=== PATIENT | female | born 1965 | race African-American/Black ===

== ENCOUNTER → 2016-10-31 | Outpatient (CLI) | payer OTHER ==
[2015-06-23 13:10] VITALS: BP 116/89
[~2016-10-31] MED LIST: DABI150C PO; HEPARIN PF 500 UNIT/5 ML DISP.SYRIN. IV ONE; IOHEXOL 240 MG/ML 50ML VIAL. PO ONE; IOHEXOL 300 MG/ML 75 ML VIAL IV ONE; MULT1TAB52 PO; ONDA4TAB12 PO; Oxycodone Hcl/Acetaminophen PO; WARF5TAB7 PO
--- NOTE | 2016-10-31 12:32 | RAD ---
Indication restage lung malignancy. Axial images through the chest abdomen and pelvis were obtained. Both oral and IV contrast were administered. Approximately 60 cc of Omnipaque 300 was administered intravenously. Note is made of a previous examination 08/16/2016. CT chest: Findings Known neoplasm, in the right upper lobe, persists and appears unchanged in size measuring approximately 2.9 x 1.9 cm. Some right hilar adenopathy is noted also appearing similar. A new finding in the chest is not seen. No new nodules are identified. Known underlying emphysematous changes are reproduced. CT abdomen and pelvis: Findings The liver and spleen appear unremarkable. The gallbladder appears grossly normal. No adrenal or renal pathology is seen. The pancreas appears unremarkable. An acute finding in the abdomen is not seen. No acute or significant finding is seen in the pelvis. Evidence of metastatic disease in the abdomen or pelvis is not seen. IMPRESSION: Stable soft tissue mass in the right upper lobe.. No new finding seen in the chest. No evidence of distant metastatic disease. Unremarkable CT imaging of the abdomen and pelvis PQRS Compliance Statement: One or more of the following individualized dose reduction techniques were utilized for this examination: 1. Automated exposure control 2. Adjustment of the mA and/or kV according to patient size 3. Use of iterative reconstruction technique
== END | disposition home or self-care (01) ==
LOC: CT 10:09
PROVIDERS: ATTEND Internal Medicine Hematology & Oncology
DX: C34.11 Malignant neoplasm of upper lobe, right bronchus or lung (principal)
CPT/HCPCS: 71260; 74177; Q9966; Q9967

== ENCOUNTER → 2016-12-12 | Outpatient (CLI) | payer OTHER ==
[2015-06-23 13:10] VITALS: BP 116/89
[~2016-12-12] MED LIST changes: -HEPARIN PF 500 UNIT/5 ML DISP.SYRIN. IV ONE; -IOHEXOL 240 MG/ML 50ML VIAL. PO ONE; -IOHEXOL 300 MG/ML 75 ML VIAL IV ONE
--- NOTE | 2016-12-12 11:17 | RAD ---
EXAM: DIGITAL SCREEN BILAT W/CAD. HISTORY: Screening. History of lung cancer. COMPARISON: None available, this is considered a new baseline. FINDINGS: Digital mammography was performed. Computer-aided detection (CAD) was utilized. The breast parenchyma demonstrates scattered fibroglandular densities (tissue density B). No dominant suspicious mass, suspicious microcalcifications, or architectural distortion is identified. Portions of a chest port are seen on the right MLO view. IMPRESSION: No mammographic evidence of malignancy. BI-RADS CATEGORY: 1 NEGATIVE RECOMMENDED FOLLOW-UP: 12M 12 MONTH FOLLOW-UP PQRS compliance statement: Patient information was entered into a reminder system with a target due date for the next mammogram. Mammography is a sensitive method for finding small breast cancers, but it does not detect them all and is not a substitute for careful clinical examination. A negative mammogram does not negate a clinically suspicious finding and should not result in delay in biopsying a clinically suspicious abnormality. "Our facility is accredited by the [employer] Mammography Program."
== END | disposition home or self-care (01) ==
LOC: MAMMO 10:28
PROVIDERS: ATTEND Family Medicine
DX: Z12.31 Encounter for screening mammogram for malignant neoplasm of breast (principal); Z85.118 Personal history of other malignant neoplasm of bronchus and lung
CPT/HCPCS: G0202; 77067

== ENCOUNTER → 2017-01-26 | Outpatient (CLI) | payer OTHER ==
[2015-06-23 13:10] VITALS: BP 116/89
[~2017-01-26] MED LIST changes: +HEPARIN PF 500 UNIT/5 ML DISP.SYRIN. IV ONE; +IOHEXOL 240 MG/ML 50ML VIAL. PO ONE; +IOHEXOL 300 MG/ML 75 ML VIAL IV ONE
--- NOTE | 2017-01-26 13:16 | RAD ---
CT neck, chest, abdomen without and with contrast 01/26/2017 at 1112 hours Indication: Restage lung cancer. New lumps in the right neck and ear. Comparison: CT of chest, abdomen and pelvis 10/31/2016 Technique: Multiple axial CT images of the neck, chest and abdomen were acquired before and after the administration of intravenous contrast. 75 mL of Omnipaque 300 was administered intravenously. 30 mL of Omnipaque 240 administered orally. Findings: Neck: There is a superficial subcutaneous nodule in the right preauricular space measuring 11 x 8 mm. There are nonenlarged right submandibular nodes measuring 10 x 6 mm patency series 2, image 26). There is a left pleural tube a lymph node measuring 12 x 9 mm (series 2, image 41). There is a left occipital node measuring 16 x 8 mm (series 2, image 43). There is a right level IIb lymph node measuring 8 x 6 mm. There is a right level 2B "measuring 8 x 7 mm (series 2, image 32). There is a left level 5 lymph node measuring 11 x 8 mm (series 2, image 25). Visualized portions of the brain appear normal. Visualized igiugig of [place] is normal. Orbits are normal in appearance. Paranasal sinuses and mastoid air cells are well aerated. Nasopharynx appears normal. There is slight asymmetric mucosal prominence in the left vallecula measuring approximately 8 mm. Oral cavity is normal. Parotid and submandibular glands appear normal. Thyroid gland appears normal Chest: Upper lobe predominant emphysematous changes are again noted. There is a mass in the medial right upper lobe measuring 37 x 18 mm, previously measuring 39 x 22 mm. There is a right hilar lymph node measuring 21 x 13 mm, previously measuring 22 x [address] series 4, image 24). No new mediastinal, axillary or hilar lymph nodes are identified. Heart size is normal in appearance. A right chest wall infusion port catheter is identified with the distal tip terminating in the superior right atrium. No pleural effusions. No pulmonary vascular congestion. No pericardial effusion. No pneumothorax. Abdomen: The liver enhances homogenously without evidence for a focal mass lesion. The spleen is normal. Bilateral adrenal glands are normal. The gallbladder is present without adjacent inflammatory changes. There is a new 5 mm hypodense lesion in the body of the pancreas (series 5, image 20). No pancreatic ductal dilatation. No peripancreatic inflammatory changes. No intrahepatic or extrahepatic biliary ductal dilatation. The abdominal aorta is normal in course and caliber. IVC is patent. There are no enlarged lymph nodes in the abdomen or pelvis. There is no free intraperitoneal air. No free fluid within the abdomen or pelvis. The kidneys enhance symmetrically. There is no hydronephrosis. No contour deforming renal mass. Small and large bowel are normal in caliber. A normal appendix is visualized. No pericolonic inflammatory changes are present. The urinary bladder is normal in appearance. No adnexal masses are identified. No suspicious osseous lesions are identified. Impression: 1. There are borderline and slightly enlarged bilateral cervical lymph nodes involving bilateral level 2B distributions and the left level 5 and occipital distributions. A right preauricular subcutaneous nodule is identified measuring 11 x 8 mm. Findings may represent areas of metastasis versus a primary head and neck malignancy. There is slight asymmetric soft tissue attenuation involving the left vallecula for which direct visualization is recommended. 2. There is slight interval decrease in size of the dominant right upper lobe pulmonary mass, currently measuring 37 x 18 mm, with similar appearance of the right hilar lymph node. No new pulmonary masses or thoracic lymphadenopathy. 3. There is a 5 mm hypodense lesion in the body of the pancreas which was not seen previously. Further evaluation with an MRCP is recommended. 4. Adrenal glands are normal. No evidence for lymphadenopathy within the abdomen and pelvis. PQRS Compliance Statement: One or more of the following individualized dose reduction techniques were utilized for this examination: 1. Automated exposure control 2. Adjustment of the mA and/or kV according to patient size 3. Use of iterative reconstruction technique
== END | disposition home or self-care (01) ==
LOC: CT 11:13
PROVIDERS: ATTEND Internal Medicine Hematology & Oncology
DX: C34.11 Malignant neoplasm of upper lobe, right bronchus or lung (principal); R22.1 Localized swelling, mass and lump, neck
CPT/HCPCS: 70492; 71270; 74170; Q9966; Q9967

== ENCOUNTER → 2017-03-21 | Outpatient (CLI) | payer OTHER ==
[2015-06-23 13:10] VITALS: BP 116/89
[~2017-03-21] MED LIST changes: +CONTRAST GIVEN MC PRN; +HEPARIN IV PRN; +HEPARIN PF 5 UNIT/5 ML DISP.SYRIN. IV PRN; +IOHEXOL 240 MG/ML 50ML VIAL. ONE; +IOHEXOL 300 MG/ML 75 ML VIAL ONE
--- NOTE | 2017-03-21 17:33 | RAD ---
CT of the chest, abdomen and pelvis with contrast, 03/21/2017: History: Follow-up lung cancer Multidetector CT imaging was performed following oral and IV administration of contrast. Comparison is made to a study from 01/26/2017. There is an irregular pulmonary mass in the medial aspect of the right upper lobe abutting the pleura and the margin of the mediastinum. On axial image 14 of series #2 and measures 35 x 20 mm. There has been no significant change since 01/26/2017. A nearby mildly prominent lymph node along the superior margin of the right hilum is unchanged. Emphysematous changes are present particularly in the upper lobes. There are scattered linear parenchymal scars. No new pulmonary infiltrate or nodularity is seen. There is no evidence of pleural fluid. A right Port-A-Cath extends to the level of the atriocaval junction. No mediastinal adenopathy is evident. No hepatic abnormality is seen. The gallbladder is unremarkable. The spleen is of normal size. No renal or adrenal abnormality is detected. A small low density lesion is again seen in the body of the pancreas near the midline. On coronal image 17 of series #5 it appears to communicate with the pancreatic duct. It measures approximately 7 mm. When allowing for technical differences it is probably unchanged since 01/26/2017. An intraductal papillary mucinous neoplasm is suspected. There is minimal aortic calcific plaquing. No abdominal or pelvic adenopathy is seen. The bowel loops are not dilated. No free fluid is evident in the abdomen or pelvis. IMPRESSION: 1. Stable right upper lobe pulmonary neoplasm. 2. Emphysema with parenchymal scarring. 3. Unchanged small low-density lesion in the body of the pancreas suggesting an intraductal papillary mucinous neoplasm. 4. No evidence of metastatic disease in the abdomen or pelvis. PQRS Compliance Statement: One or more of the following individualized dose reduction techniques were utilized for this examination: 1. Automated exposure control 2. Adjustment of the mA and/or kV according to patient size 3. Use of iterative reconstruction technique
== END | disposition home or self-care (01) ==
LOC: CT 12:52
PROVIDERS: ATTEND Internal Medicine Hematology & Oncology
DX: C34.11 Malignant neoplasm of upper lobe, right bronchus or lung (principal); J43.9 Emphysema, unspecified; R53.83 Other fatigue
CPT/HCPCS: 71260; 74177; Q9966; Q9967

== ENCOUNTER → 2017-05-29 | Outpatient (CLI) | payer OTHER ==
[2015-06-23 13:10] VITALS: BP 116/89
[~2017-05-29] MED LIST changes: -CONTRAST GIVEN MC PRN; -HEPARIN IV PRN; -HEPARIN PF 5 UNIT/5 ML DISP.SYRIN. IV PRN; -IOHEXOL 240 MG/ML 50ML VIAL. ONE; +IOHEXOL 300 MG/ML 100ML VIAL. IV ONE; -IOHEXOL 300 MG/ML 75 ML VIAL IV ONE; -IOHEXOL 300 MG/ML 75 ML VIAL ONE
--- NOTE | 2017-05-29 17:25 | RAD ---
CT chest, abdomen and pelvis 05/29/2017 Clinical indication: Malignant neoplasm of the right upper lobe. Comparison: CT chest, abdomen and pelvis 03/21/2017, 01/26/2017, 10/31/2016. Technique: Multiple CT images of the chest abdomen and pelvis were obtained following the intravenous menstruation of 75 mL Omnipaque 300. PQRS Compliance Statement: One or more of the following individualized dose reduction techniques were utilized for this examination: 1. Automated exposure control 2. Adjustment of the mA and/or kV according to patient size 3. Use of iterative reconstruction technique Findings: Chest: There is a right IJ chest port with distal tip terminating in the superior caval atrial junction. Heart size is normal thoracic and pericardial effusion. The thoracic aorta is normal in caliber with mild soft atheromatous disease. No axillary, mediastinal or left hilar lymphadenopathy. There is been slight interval decrease in right suprahilar mass with contiguous soft tissue extension to the right tatiana which is difficult to measure due to irregular course. Best estimate of the mass measurement is 2.9 cm TV x 1.7 cm AP x 4.8 cm CC series 2/15, series 5/image 31, previously 3.4 x 1.8 x 5.3 cm when measuring a similar fashion. There is a stable right hilar lymph node measuring 1.5 cm series 2/image 22, previous 1.5 cm. There is mild upper lobe predominant centrilobular and paraseptal emphysema. No new or enlarging noncalcified pulmonary nodule. No pleural effusion or pneumothorax. There are no destructive osseous lesions. Abdomen and pelvis: Liver, gallbladder, spleen, adrenal glands, and kidneys are unremarkable. There is a stable hypodensity at the body of the pancreas best seen on coronal series 8/image 17 measuring 0.6 cm. Abdominal aorta is normal in caliber with mild ossified atheromatous disease. Major portal, splenic and visualized. Mesenteric veins are patent. Small and large bowel loops are normal in caliber without obstruction. No retroperitoneal or mesenteric lymphadenopathy. No abdominal free fluid. Mildly distended and unopacified urinary bladder unremarkable. There are no destructive osseous lesions. Impression: Chest: 1. Slight interval decrease in right upper lobe/suprahilar mass with contiguous soft tissue thickening into the right tatiana compatible with known primary lung malignancy. 2. Stable mildly enlarged right hilar lymph node, concerning for twan metastatic disease. 3. No new or enlarging noncalcified pulmonary nodule. Abdomen and pelvis: 1. No evidence of abdominal or pelvic metastatic disease. 2. Stable subcentimeter pancreatic hypodensity, may represent intraductal papillary mucinous neoplasm (IPMN).
== END | disposition home or self-care (01) ==
LOC: CT 10:46
PROVIDERS: ATTEND Internal Medicine Hematology & Oncology
DX: C34.11 Malignant neoplasm of upper lobe, right bronchus or lung (principal)
CPT/HCPCS: 71260; 74177; Q9966; Q9967

== ENCOUNTER → 2017-08-14 | Outpatient (CLI) | payer OTHER ==
[2017-08-14] MEDS: IOHEXOL 240 MG/ML 50ML VIAL. PO ×2 (11:09)
[2017-08-14] MEDS: IOHEXOL 300 MG/ML 100ML VIAL. IV ×2 (11:09)
== END | disposition home or self-care (01) ==
LOC: NM 09:33
DX: C34.11 Malignant neoplasm of upper lobe, right bronchus or lung (principal); J43.9 Emphysema, unspecified; R59.0 Localized enlarged lymph nodes; Z87.891 Personal history of nicotine dependence
CPT/HCPCS: 71260; 74177; 78306; 96374; A9503; Q9966; Q9967

== ENCOUNTER → 2017-10-22 | Outpatient (CLI) | payer OTHER ==
[2017-10-22] MEDS: IOHEXOL 240 MG/ML 50ML VIAL. PO (11:15)
[2017-10-22] MEDS: IOHEXOL 300 MG/ML 100ML VIAL. IV (12:04)
[2017-10-22] MEDS: HEPARIN PF 500 UNIT/5 ML DISP.SYRIN. IV (12:06)
== END | disposition home or self-care (01) ==
LOC: CT 09:45
DX: C34.11 Malignant neoplasm of upper lobe, right bronchus or lung (principal); J44.9 Chronic obstructive pulmonary disease, unspecified; R53.83 Other fatigue; Z87.891 Personal history of nicotine dependence
CPT/HCPCS: 71260; 74177; Q9966; Q9967

== ENCOUNTER → 2017-10-26 | Outpatient (CLI) | payer OTHER | END | disposition home or self-care (01) | LOC: US 12:46 | DX: M79.89 Other specified soft tissue disorders (principal); M79.601 Pain in right arm | CPT/HCPCS: 93971 ==

== ENCOUNTER → 2018-01-03 | Outpatient (CLI) | payer OTHER ==
[~2018-01-03] MED LIST changes: +CONTRAST GIVEN. MC; -DABI150C PO; -HEPARIN PF 500 UNIT/5 ML DISP.SYRIN. IV ONE; -IOHEXOL 240 MG/ML 50ML VIAL. PO ONE; -IOHEXOL 300 MG/ML 100ML VIAL. IV ONE; -MULT1TAB52 PO; -ONDA4TAB12 PO; -Oxycodone Hcl/Acetaminophen PO; -WARF5TAB7 PO
[2018-01-03] MEDS: IOHEXOL 240 MG/ML 50ML VIAL. PO (09:56)
[2018-01-03] MEDS: IOHEXOL 300 MG/ML 100ML VIAL. IV (09:56)
== END | disposition home or self-care (01) ==
LOC: CT 08:11
DX: C34.91 Malignant neoplasm of unspecified part of right bronchus or lung (principal); I10 Essential (primary) hypertension; J43.9 Emphysema, unspecified
CPT/HCPCS: 71260; 74177

== ENCOUNTER → 2018-03-13 | Outpatient (CLI) | payer OTHER ==
[2015-06-23 13:10] VITALS: BP 116/89
[~2018-03-13] MED LIST changes: -CONTRAST GIVEN. MC; +CONTRAST GIVEN. MC PRN; +DABI150C PO; +HEPARIN PF 500 UNIT/5 ML DISP.SYRIN. IV ONE; +IOHEXOL 240 MG/ML 50ML VIAL. PO ONE; +IOHEXOL 300 MG/ML 100ML VIAL. IV ONE; +MULT1TAB52 PO; +ONDA4TAB12 PO; +Oxycodone Hcl/Acetaminophen PO; +WARF-31 PO
--- NOTE | 2018-03-13 13:47 | RAD ---
CT of the chest, abdomen and pelvis with contrast, 03/13/2018: HISTORY: Restaging lung cancer Multidetector CT imaging was performed following oral and IV administration of contrast. Comparison is made to a study from 01/03/2018. There is a persistent parenchymal mass in the medial aspect of the right upper lobe which abuts the lateral margin of the mediastinum in the right suprahilar region and abuts the superior aspect of the oblique fissure. Its margins are irregular making measurements difficult. On the axial images it measures 3.1 cm x 1.5 cm on the current images compared to measurements of 3.3 x 1.6 cm at this level on the previous study. It is therefore similar to slightly decreased size. Emphysematous changes are present in the lungs with scattered parenchymal scars. No new pulmonary abnormality is seen. There is no evidence of pleural fluid. A right Port-A-Cath is in place extending into the inferior aspect of the superior vena cava. A 1.1 cm right hilar lymph node is of similar size when compared to the previous study as best demonstrated on coronal plane. No mediastinal adenopathy is seen. There is no evidence of a hepatic mass. The gallbladder is somewhat contracted. No pancreatic abnormality is seen. The spleen is of normal size. No renal or adrenal abnormality is detected. No abdominal or pelvic adenopathy is seen. Aortoiliac calcific plaquing is present. The uterus is retroverted with prominent periuterine vascularity. Moderate diffuse bladder wall thickening is probably related to its lack of distention on today's study. The bowel loops are not dilated. No free air or free fluid is evident in the abdomen or pelvis. IMPRESSION: 1. The right upper lobe pulmonary mass is stable to perhaps slightly smaller when compared to 01/03/2018 exam. 2. Stable mild right hilar adenopathy. 3. No new chest abnormality is detected. 4. No CT evidence of metastatic disease in the abdomen or pelvis. PQRS Compliance Statement: One or more of the following individualized dose reduction techniques were utilized for this examination: 1. Automated exposure control 2. Adjustment of the mA and/or kV according to patient size 3. Use of iterative reconstruction technique Electronically signed by: Rufino Burns MD (03/13/2018 1:44 PM) [facility]
== END | disposition home or self-care (01) ==
LOC: CT 09:08
PROVIDERS: ATTEND Internal Medicine Hematology & Oncology
DX: C34.91 Malignant neoplasm of unspecified part of right bronchus or lung (principal); R91.8 Other nonspecific abnormal finding of lung field; R59.9 Enlarged lymph nodes, unspecified; I10 Essential (primary) hypertension; J44.9 Chronic obstructive pulmonary disease, unspecified; Z87.891 Personal history of nicotine dependence
CPT/HCPCS: 71260; 74177; Q9966; Q9967

== ENCOUNTER → 2018-03-13 | Outpatient (CLI) | payer OTHER ==
[2015-06-23 13:10] VITALS: BP 116/89
[~2018-03-13] MED LIST changes: -CONTRAST GIVEN. MC PRN; -HEPARIN PF 500 UNIT/5 ML DISP.SYRIN. IV ONE; -IOHEXOL 240 MG/ML 50ML VIAL. PO ONE; -IOHEXOL 300 MG/ML 100ML VIAL. IV ONE
--- NOTE | 2018-03-13 10:28 | RAD ---
DATE: 03/13/2018 EXAM: DIGITAL SCREEN BILAT W/CAD HISTORY: Routine screening COMPARISON: 12/12/2016 This study was interpreted with the benefit of Computerized Aided Detection (CAD). The breast parenchyma shows scattered fibroglandular densities. Breast parenchyma level B. FINDINGS: No new or enlarging breast densities are seen. A Port-A-Cath is projected over the right upper chest. Several right axillary lymph nodes are incompletely visualized. No suspicious microcalcifications are evident. IMPRESSION: There is no mammographic evidence of malignancy in either breast. BI-RADS CATEGORY: 2 BENIGN FINDING(S) RECOMMENDED FOLLOW-UP: 12M 12 MONTH FOLLOW-UP PQRS compliance statement: Patient information was entered into a reminder system with a target due date for the next mammogram. Mammography is a sensitive method for finding small breast cancers, but it does not detect them all and is not a substitute for careful clinical examination. A negative mammogram does not negate a clinically suspicious finding and should not result in delay in biopsying a clinically suspicious abnormality. "Our facility is accredited by the [employer] Mammography Program."
== END | disposition home or self-care (01) ==
LOC: MAMMO 09:02
PROVIDERS: ATTEND Family Medicine
DX: Z12.31 Encounter for screening mammogram for malignant neoplasm of breast (principal); I10 Essential (primary) hypertension; J44.9 Chronic obstructive pulmonary disease, unspecified; Z87.891 Personal history of nicotine dependence; Z85.118 Personal history of other malignant neoplasm of bronchus and lung
CPT/HCPCS: 77067

== ENCOUNTER → 2018-05-21 | Outpatient (CLI) | payer OTHER ==
[2015-06-23 13:10] VITALS: BP 116/89
[~2018-05-21] MED LIST changes: +CONTRAST GIVEN. MC PRN; +HEPARIN PF 500 UNIT/5 ML DISP.SYRIN. IV ONE; +IOHEXOL 240 MG/ML 50ML VIAL. PO ONE; +IOHEXOL 300 MG/ML 100ML VIAL. IV ONE
--- NOTE | 2018-05-21 16:56 | RAD ---
CT CHEST ABD PELVIS W/CONTRAST dated 05/21/2018 10:58 AM Indication: Follow-up lung cancer.NEOPLASM OF LUNG. IV OMNI 300 75 MLS AND PO OMNI 240 50 MLS
PREVIOUS. Comparison: 03/13/2018 Technique: Contiguous axial imaging of the chest abdomen and pelvis performed after the intravenous administration of 75 cc Omnipaque 300. One or more of the following individualized dose reduction techniques were utilized for this examination: 1. Automated exposure control 2. Adjustment of the mA and/or kV according to patient size 3. Use of iterative reconstruction technique Findings: Focal irregular zone of consolidation in the medial right upper lobe measures 1.4 x 2.8 cm versus 1.3 x 2.8 cm previously. Soft tissue thickening extends inferiorly to the level of the right hilum and there is a mildly enlarged right hilar lymph node that measures 1.3 cm short axis versus 1.2 cm previously. Central airways are patent. Mild diffuse bronchial wall thickening. Moderate emphysema, unchanged. No new area of consolidation or mass. No pleural effusion. Heart size upper limits of normal. No pericardial effusion. No mediastinal or left hilar adenopathy. No axillary adenopathy. The thyroid gland is unremarkable. Liver, spleen, pancreas, adrenal glands and kidneys are unremarkable. No hydronephrosis. Gallbladder is unremarkable. Partially opacified GI tract normal in caliber and contour. No focal bowel wall thickening. No inflammatory stranding in the mesentery. No ascites or lymphadenopathy. Abdominal aorta is normal in caliber. Images of the pelvis show nondistended urinary bladder. Uterus and adnexa are unremarkable. No free pelvic fluid or pelvic lymphadenopathy. Bone windows show no acute findings. Mild multilevel spondylosis. IMPRESSION CHEST: 1. No significant interval change in right upper lobe mass. 2. Right hilar lymphadenopathy, also stable. 3. Emphysema. 4. No new or acute findings. IMPRESSION ABDOMEN PELVIS: 1. No evidence of metastatic disease or lymphadenopathy. Electronically signed by: Gage Alston MD (05/21/2018 4:52 PM) [id number]
== END | disposition home or self-care (01) ==
LOC: CT 09:55
PROVIDERS: ATTEND Internal Medicine Hematology & Oncology
DX: C34.91 Malignant neoplasm of unspecified part of right bronchus or lung (principal); J43.8 Other emphysema; M47.894 Other spondylosis, thoracic region; R59.1 Generalized enlarged lymph nodes
CPT/HCPCS: 71260; 74177; Q9966; Q9967

== ENCOUNTER → 2018-07-29 | Outpatient (CLI) | payer MEDICAID, OTHER ==
[2015-06-23 13:10] VITALS: BP 116/89
--- NOTE | 2018-07-29 18:26 | RAD ---
CT of the chest, abdomen and pelvis with contrast, 07/29/2018: HISTORY: Follow-up lung cancer Multidetector CT imaging was performed following oral and IV administration of contrast. Comparison is made to a study from 05/21/2018. There is an abnormal parenchymal opacity in the medial aspect of the right upper lobe abutting the pleura. The dense central component measures approximately 1.4 x 2.8 cm on the axial scans and has shown no definite change since 05/21/2018. There are emphysematous changes in the lungs. There are scattered parenchymal scars. No new pulmonary abnormality is detected. Soft tissue extends inferiorly from this right lung mass to the right hilum where there is a mildly enlarged hilar lymph node. This also appears unchanged. No new adenopathy is seen. A right Port-A-Cath extends into the inferior aspect of the superior vena cava. There is no evidence of pleural fluid. No hepatic mass is identified. The gallbladder is unremarkable. The pancreas shows no abnormality. The spleen is of normal size. No renal or adrenal abnormality is detected. There is mild aortoiliac calcific plaquing no abdominal or pelvic adenopathy is seen. The bowel loops are not dilated. No free fluid is evident in the abdomen or pelvis. IMPRESSION: 1. Emphysema with parenchymal scarring. 2. Stable right upper lobe pulmonary mass. 3. Unchanged right hilar adenopathy. 4. No evidence of metastatic disease in the abdomen or pelvis. PQRS Compliance Statement: One or more of the following individualized dose reduction techniques were utilized for this examination: 1. Automated exposure control 2. Adjustment of the mA and/or kV according to patient size 3. Use of iterative reconstruction technique Electronically signed by: Rufino Burns MD (07/29/2018 6:22 PM) [facility]
== END | disposition home or self-care (01) ==
LOC: CT 09:28
PROVIDERS: ATTEND Internal Medicine Hematology & Oncology
DX: C34.91 Malignant neoplasm of unspecified part of right bronchus or lung (principal); J43.8 Other emphysema; R91.8 Other nonspecific abnormal finding of lung field
CPT/HCPCS: 71260; 74177; Q9966; Q9967

== ENCOUNTER → 2018-10-22 | Outpatient (CLI) | payer OTHER ==
[2015-06-23 13:10] VITALS: BP 116/89
[~2018-10-22] MED LIST changes: -CONTRAST GIVEN. MC PRN
--- NOTE | 2018-10-22 15:01 | RAD ---
Examination: CT CHEST ABD PELVIS W/CONTRAST History: MALIGNANT NEOPLASM OF RIGHT LUNG
IV OMNI 300 75 MLS AND PO OMNI 240 50 MLS
PREVIOUS Comparison/Correlation: 05/21/2018 and 07/29/2018 CT chest abdomen and pelvis with contrast Findings: Axial images of the chest, abdomen, and pelvis were obtained following IV contrast. Sagittal and coronal reformatted images were provided. Oral contrast was administered. Right central venous infusion port catheter is within the superior vena cava. Masslike density medial right upper lung field adjacent to the superior mediastinal pleura is present measuring 3 cm anteroposterior by 1.7 cm anteroposterior is unchanged compared to the prior exam. No new masses. Diffuse centrilobular emphysematous involvement of the lung quintero is noted. No enlarged thoracic lymph nodes. No pleural or pericardial effusion. Liver, spleen, pancreas, adrenal glands, and kidneys are normal. No extraluminal gas. No ascites or pelvic free fluid. Abdominal aortic diameter is unremarkable. Bilateral prominent vascularity of the adnexal regions greater on the left evident. Urinary bladder is mostly decompressed. Appendix is normal. No bowel obstruction. No suspicious collections within the abdomen or pelvis. Impression: Stable right upper lung mass. No suspicious finding in the interval involving the chest, abdomen, or pelvis. PQRS Compliance Statement: One or more of the following individualized dose reduction techniques were utilized for this examination: 1. Automated exposure control 2. Adjustment of the mA and/or kV according to patient size 3. Use of iterative reconstruction technique Electronically signed by: Alexander Villegas MD (10/22/2018 2:58 PM) [facility]
== END | disposition home or self-care (01) ==
LOC: CT 09:22
PROVIDERS: ATTEND Internal Medicine Hematology & Oncology
DX: C34.91 Malignant neoplasm of unspecified part of right bronchus or lung (principal); J43.2 Centrilobular emphysema; R91.8 Other nonspecific abnormal finding of lung field
CPT/HCPCS: 71260; 74177; Q9966; Q9967

== ENCOUNTER → 2019-01-21 | Outpatient (CLI) | payer MEDICAID ==
[2015-06-23 13:10] VITALS: BP 116/89
--- NOTE | 2019-01-21 11:24 | RAD ---
Examination: CT CHEST ABD PELVIS W/CONTRAST History: Malignant neoplasm of the right lung Comparison/Correlation: 10/22/2018 CT chest abdomen pelvis with contrast Findings: Axial images of chest, abdomen, and pelvis were obtained following IV and oral contrast. Sagittal and coronal reformatted images were provided. Right-sided infusion port catheter tip terminates within the superior vena cava. Centrilobular emphysematous involvement of the lung quintero noted. Right upper thoracic paraspinal juxtapleural mass again is seen without significant change in morphology or size. It measures up to 2.8 cm transverse by 1.4 cm anteroposterior. No new mass identified. No enlarged thoracic lymph nodes. No suspicious infiltrate in the interval. Liver, spleen, pancreas, adrenal glands are normal. Right extrarenal pelvis is present. Left kidney is unremarkable. Circumferential wall thickening of the hepatic flexure is present likely representing spasm or contraction. This is similar to prior exam. Appendix is unremarkable. No enlarged abdominal or pelvic lymph nodes. No ascites or pelvic free fluid. Circumferential wall thickening of the urinary bladder is present. Bony structures are unremarkable. Impression: No change in right upper lung mass. No new suspicious finding. PQRS Compliance Statement: One or more of the following individualized dose reduction techniques were utilized for this examination: 1. Automated exposure control 2. Adjustment of the mA and/or kV according to patient size 3. Use of iterative reconstruction technique Electronically signed by: Alexander Villegas MD (01/21/2019 11:21 AM) [facility]
== END | disposition home or self-care (01) ==
LOC: CT 07:52
PROVIDERS: ATTEND Internal Medicine Hematology & Oncology
DX: C34.91 Malignant neoplasm of unspecified part of right bronchus or lung (principal); J43.9 Emphysema, unspecified; M48.8X4 Other specified spondylopathies, thoracic region; F17.200 Nicotine dependence, unspecified, uncomplicated
CPT/HCPCS: 71260; 74177; Q9966; Q9967

== ENCOUNTER → 2019-04-29 | Outpatient (CLI) | payer MEDICAID ==
[2015-06-23 13:10] VITALS: BP 116/89
[~2019-04-29] MED LIST changes: -HEPARIN PF 500 UNIT/5 ML DISP.SYRIN. IV ONE; +HEPARIN PF 500 UNIT/5 ML DISP.SYRIN. IVP ONE
--- NOTE | 2019-04-30 09:40 | RAD ---
Examination: CT CHEST ABD PELVIS W/CONTRAST History: Right lung malignancy Comparison/Correlation: 01/21/2019 CT chest abdomen pelvis with contrast Findings: Axial images of the chest, abdomen, and pelvis were obtained following IV and oral contrast. Sagittal and coronal reformatted images were provided. Right-sided infusion port catheter is present terminating at the superior cavoatrial junction. Medial right upper thoracic level juxta pleural mass lesion measuring 0.8 cm transverse by 1.4 cm anteroposterior is overall unchanged in size and morphology. No new masses. Mild right upper bronchus luminal narrowing at the hilum is unchanged. No new infiltrates or pulmonary nodules. Emphysematous involvement of the lung quintero again is seen. No pleural or pericardial effusion. No enlarged thoracic lymph nodes. Liver, spleen, pancreas, and adrenal glands are normal. Right extrarenal pelvis is noted. Gallbladder fossa is unremarkable. Moderate quantity of stool in the colon is present. Appendix is normal. No ascites or pelvic free fluid. No abdominal or pelvic lymph nodes. Circumferential wall thickening of the urinary bladder is present. Prominent vascularity about the adnexal regions again as well as x-rays noted. Bladder is unremarkable. Impression: Right upper lung mass is stable. No suspicious new findings. PQRS Compliance Statement: One or more of the following individualized dose reduction techniques were utilized for this examination: 1. Automated exposure control 2. Adjustment of the mA and/or kV according to patient size 3. Use of iterative reconstruction technique Electronically signed by: Alexander Villegas MD (04/30/2019 9:37 AM) [facility]
== END | disposition home or self-care (01) ==
LOC: CT 10:09
PROVIDERS: ATTEND Internal Medicine Hematology & Oncology
DX: C34.11 Malignant neoplasm of upper lobe, right bronchus or lung (principal); J43.9 Emphysema, unspecified; R91.8 Other nonspecific abnormal finding of lung field; I25.10 Atherosclerotic heart disease of native coronary artery without angina pectoris
CPT/HCPCS: 71260; 74177; Q9966; Q9967

== ENCOUNTER → 2019-07-18 | Outpatient (CLI) | payer MEDICAID ==
[2015-06-23 13:10] VITALS: BP 116/89
--- NOTE | 2019-07-18 14:53 | RAD ---
Examination: CT CHEST ABD PELVIS W/CONTRAST History: Malignant neoplasm of the right lung Comparison/Correlation: 04/29/2019 CT chest abdomen pelvis with contrast Findings: Axial images of chest, abdomen, and pelvis were obtained following IV contrast. Oral contrast also administered. Sagittal and coronal reformatted images provided. Right-sided infusion port catheter tip terminates within the superior vena cava. Masslike scarring involvement of the medial aspect of the right apex is stable. Emphysematous bone the lung quintero again seen. No pneumothorax. No pleural or pericardial effusion. Tracheobronchial tree is unremarkable. Thoracic aorta is unremarkable. Liver, spleen, pancreas, adrenal glands, and kidneys are normal. Right external pelvis is noted. Gallbladder fossa is unremarkable. No enlarged abdominal or pelvic adenopathy. The bowel is unremarkable. No extraluminal gas. No ascites or pelvic free fluid. Urinary bladder is unremarkable. Mild prominence of vasculature but the adnexal regions is noted. Correlate for pelvic congestion syndrome. Small umbilical hernia noted. Urinary bladder is unremarkable. Bony structures are unremarkable. Impression: No mass lesions in the interval. No infiltrates. Emphysematous involvement of the lung quintero noted. Stable right medial upper lung field masslike scarring. No suspicious features or suspicious change Prominent pelvic vasculature about the adnexal regions. Correlate for possibility of pelvic congestion syndrome. PQRS Compliance Statement: One or more of the following individualized dose reduction techniques were utilized for this examination: 1. Automated exposure control 2. Adjustment of the mA and/or kV according to patient size 3. Use of iterative reconstruction technique Electronically signed by: Alexander Villegas MD (07/18/2019 2:50 PM) [facility]
== END | disposition home or self-care (01) ==
LOC: CT 09:27
PROVIDERS: ATTEND Internal Medicine Hematology & Oncology
DX: C34.91 Malignant neoplasm of unspecified part of right bronchus or lung (principal); J43.9 Emphysema, unspecified; J98.4 Other disorders of lung; K42.9 Umbilical hernia without obstruction or gangrene
CPT/HCPCS: 71260; 74177; Q9966; Q9967

== ENCOUNTER → 2019-10-21 | Outpatient (CLI) | payer MEDICAID ==
[2015-06-23 13:10] VITALS: BP 116/89
[~2019-10-21] MED LIST changes: -HEPARIN PF 500 UNIT/5 ML DISP.SYRIN. IVP ONE
--- NOTE | 2019-10-21 11:07 | KCIC ---
CT chest, abdomen and pelvis with contrast: Reason for examination: History of malignant neoplasm of the right lung. Follow-up exam. Comparison is made to previous study dated 07/18/2019. Helical images were obtained through the chest, abdomen and pelvis with intravenous administration of 67 cc Omnipaque 300. Reconstruction was performed in sagittal and coronal planes. Exposure: One or more of the following individualized dose reduction techniques were utilized for this examination: 1. Automated exposure control 2. Adjustment of the mA and/or kV according to patient size 3. Use of iterative reconstruction technique. No abnormality seen at the thyroid gland. The trachea and mainstem bronchi show no intraluminal lesion. No abnormality seen at the esophagus. The thoracic aorta shows no aneurysmal dilatation or dissection. No significant adenopathy is seen in the mediastinum. The heart size is normal with no pericardial effusion. There continue to be emphysematous changes bilaterally. There continues to be a masslike lesion medially in the right upper lobe extending from apex to the right hilum. This is unchanged. No new infiltrates or pleural effusions are seen. No acute bony abnormalities are seen in the chest. No focal abnormality seen at the liver, spleen, adrenal glands, gallbladder or pancreas. The abdominal aorta and inferior vena cava show no acute abnormalities. The kidneys show no renal masses, renal calculi, hydronephrosis or evidence of obstructive uropathy. There is no evidence of diverticulosis or diverticulitis or colitis. The small intestinal tract shows no abnormal dilatation or obstruction. No abnormality seen at the appendix. The stomach shows no abnormal wall thickening or obstruction. The bladder wall appears mildly thickened but is unchanged. No abnormality seen at the uterus or ovaries. No free fluid or free air is seen in the abdomen or pelvis. There continue to be a few small inguinal lymph nodes present which are stable. No acute bony abnormalities are seen. IMPRESSION: Continued presence of soft tissue density in the medial right upper lobe extending from the apex to the right hilum but showing no interval change. No new infiltrates or pleural effusions. No acute abnormality seen in the abdomen or pelvis. Electronically signed by: Yamilex Vieira MD (10/21/2019 11:04 AM) [id number]
== END | disposition home or self-care (01) ==
LOC: KCIC CT 08:00
PROVIDERS: ATTEND Internal Medicine Hematology & Oncology
DX: C34.91 Malignant neoplasm of unspecified part of right bronchus or lung (principal); J98.4 Other disorders of lung; J43.9 Emphysema, unspecified
CPT/HCPCS: 71260; 74177; Q9966; Q9967

== ENCOUNTER → 2020-02-19 | Outpatient (CLI) | payer MEDICAID ==
[2015-06-23 13:10] VITALS: BP 116/89
[~2020-02-19] MED LIST changes: +CONTRAST GIVEN. MC PRN; +HEPARIN PF 500 UNIT/5 ML DISP.SYRIN. IVP ONE; +MULT-445 PO; -MULT1TAB52 PO
--- NOTE | 2020-02-19 09:36 | RAD ---
PQRS Compliance Statement: One or more of the following individualized dose reduction techniques were utilized for this examination: 1. Automated exposure control 2. Adjustment of the mA and/or kV according to patient size 3. Use of iterative reconstruction technique CT CHEST ABD PELVIS W/CONTRAST 02/19/2020 9:30 AM INDICATION: Malignant neoplasm of the right lung. COMPARISON: CT CAP 07/18/2019, 04/29/2019, 01/21/2019 TECHNIQUE: Multiple axial CT images of the chest, abdomen and pelvis were obtained after the intravenous administration of 75 mL Omnipaque 300. Coronal and sagittal reformats are provided. FINDINGS: Mild biapical pulmonary emphysematous changes are identified. Within the right upper lobe medially, there is a nodular pulmonary parenchymal opacity measuring 2.6 x 1.8 cm, previously 2.1 x 1.8 cm. There may be marginally increased compared to prior examination. No pleural effusions, pulmonary vascular congestion or pneumothorax. Right chest wall infusion port catheter is identified with the distal tip terminating in the cavoatrial junction. Heart size within normal limits. No pericardial effusion. Thoracic aorta is normal in course and caliber. Increase in size of right hilar lymph node measuring 2.5 x 2.1 cm, previously measuring 1.5 x 1.3 cm (series 2, image 23). Liver, spleen, bilateral adrenal glands, pancreas, gallbladder and kidneys are normal in appearance. Mild bilateral pelvocaliectasis without definite obstructive etiology. Opacified portions of the renal collecting systems and ureters are normal without urothelial thickening or filling defect. Urinary bladder is within normal limits given degree of distention. Uterus and adnexa are normal by CT. Small large bowel are normal in caliber. Oral contrast administered. No bowel obstruction or inflammation. Appendix is normal. Stomach is normal in appearance. Abdominal aorta is normal in course and caliber. No pathologically enlarged lymph nodes are identified in abdomen and pelvis. There is no free fluid or free intraperitoneal air. No suspicious osseous abnormality is identified. IMPRESSION: 1. Increase in size of medial right upper lobe parenchymal opacity measuring 2.6 x 1.8 cm, previously 2.1 x 1.8 cm. 2. Increase in size of right hilar lymph node suspicious for twan metastatic disease measuring 2.5 x 2.1 cm, previously 1.5 x 1.3 cm. 3. No evidence for metastatic disease involving the abdomen and pelvis. Electronically signed by: Terrie Bradley MD (02/19/2020 9:33 AM) [id number]
== END | disposition home or self-care (01) ==
LOC: CT 09:21
PROVIDERS: ATTEND Internal Medicine Hematology & Oncology
DX: C34.11 Malignant neoplasm of upper lobe, right bronchus or lung (principal); N28.89 Other specified disorders of kidney and ureter
CPT/HCPCS: 71260; 74177